=== PATIENT | male | born 1945 | race Caucasian/White ===

== ENCOUNTER 2019-12-18 20:08 | Observation (INO) ==
[2019-12-18 20:36] LABS: Basophils % 0.3 % (0.0-0.8); Eosinophils # 0.2 10*3/uL (0.0-0.87); Eosinophils % 1.5 % (0.00-10.9); Hematocrit 43.4 VOL% (42.0-52.0); Hemoglobin 14.4 GM/DL (14.0-18.0); Immature Granulocytes % 0.5 %; Immature Granulocytes Absolute 0.06 #; Lymphocytes # 2.4 10*3/uL (1.4-4.0); Lymphocytes % 19.2 % (21.2-54.2); Mean Corpuscular HGB Conc 33.2 GM/DL (32-36); Mean Corpuscular Volume 95.2 FL (87-102); Mean Platelet Volume 11.3 FL (9.6-12.0); Monocytes % 8.9 % (1.7-12.7); Neutrophils % 69.6 % (38.7-73.9); Platelet Count 251 T/CUMM (130-400); Red Blood Count 4.56 MC/CUMM (3.8-5.5); White Blood Count 12.7 T/CUMM (4-12)
[2019-12-18 20:54] LABS: Alanine Aminotransferase 35 U/L (16-61); Albumin 3.3 G/DL (3.4-5.0); Alkaline Phosphatase 84 U/L (45-117); Aspartate Amino Transferase 16 U/L (0-37); Bilirubin,Total < 0.39 MG/DL (0.2-1.0); Blood Urea Nitrogen 34 MG/DL (7-18); Calcium 8.2 MG/DL (8.5-10.1); Estimated Glom Filtration Rate 43 ML/MIN; Glucose 169 MG/DL (74-106); Osmolality,Calculated 288.5 MOS/KG (273-304); Total Protein 6.8 G/DL (6.4-8.3)
[2019-12-18] MEDS ORDERED: PANTOPRAZOLE 40 MG VIAL IV STA (23:07)
[2019-12-18] MEDS ORDERED: SODIUM CHLORIDE 0.9% 500 ML IV STA (23:07)
[2019-12-18] MEDS ORDERED: ONDANSETRON 4 MG/2 ML VIAL IV STA (23:07)
[2019-12-18 23:50] LABS: PT Patient Result 10.4 SECS (9.8-11.9)
[2019-12-19] MEDS ORDERED: ONDANSETRON 4 MG/2 ML VIAL IV PRN (00:07)
[2019-12-19] MEDS ORDERED: ACETAMINOPHEN 325 MG TABLET PO PRN (00:07)
[2019-12-19] MEDS ORDERED: DEXTROSE 50% 25 GM/50 ML VIAL IV PRN ×3 (00:07→15:34)
[2019-12-19] MEDS ORDERED: GLUCAGON 1 MG VIAL IM PRN ×2 (00:07→15:34)
[2019-12-19 06:59] LABS: Hematocrit 36.2 VOL% (42.0-52.0); Hemoglobin 11.9 GM/DL (14.0-18.0)
[2019-12-19 07:34] LABS: Albumin 2.8 G/DL (3.4-5.0); Bilirubin,Total 0.5 MG/DL (0.2-1.0); Calcium 7.9 MG/DL (8.5-10.1); Osmolality,Calculated 289.4 MOS/KG (273-304); Total Protein 5.8 G/DL (6.4-8.3)
[2019-12-19] MEDS ORDERED: INSULIN REGULAR 100 UNIT/ML ONE (08:33)
[2019-12-19] MEDS: SODIUM CHLORIDE 0.9% 1,000 ML IV SCH (08:38)
[2019-12-19] MEDS: INSULIN REGULAR 100 UNIT/ML SUBCUT SCH ×4 (08:40→20:59)
[2019-12-19] MEDS: PANTOPRAZOLE 40 MG TABLET PO SCH ×2 (10:14→20:57)
[2019-12-19 13:09] LABS: Hematocrit 33.8 VOL% (42.0-52.0)
[2019-12-19 19:18] LABS: Hematocrit 30.5 VOL% (42.0-52.0)
[2019-12-19] MEDS ORDERED: SIMVASTATIN 40 MG TABLET PO SCH (21:00)
[2019-12-20 01:58] LABS: Hematocrit 30.2 VOL% (42.0-52.0); Hemoglobin 9.9 GM/DL (14.0-18.0)
[2019-12-20] MEDS: SODIUM CHLORIDE 0.9% 1,000 ML IV SCH ×2 (04:35→12:34)
[2019-12-20 05:31] LABS: Basophils % 0.4 % (0.0-0.8); Eosinophils # 0.2 10*3/uL (0.0-0.87); Eosinophils % 2.7 % (0.00-10.9); Hematocrit 28.8 VOL% (42.0-52.0); Hemoglobin 9.5 GM/DL (14.0-18.0); Immature Granulocytes % 0.7 %; Immature Granulocytes Absolute 0.05 #; Lymphocytes # 2.1 10*3/uL (1.4-4.0); Lymphocytes % 30.8 % (21.2-54.2); Mean Corpuscular Volume 97.6 FL (87-102); Mean Platelet Volume 11.5 FL (9.6-12.0); Monocytes % 9.4 % (1.7-12.7); Platelet Count 142 T/CUMM (130-400); Red Blood Count 2.95 MC/CUMM (3.8-5.5); Red Cell Distribution Width 12.7 % (9.3-17.3); White Blood Count 6.7 T/CUMM (4-12)
[2019-12-20 06:04] LABS: Calcium 7.8 MG/DL (8.5-10.1); Osmolality,Calculated 287.4 MOS/KG (273-304)
[2019-12-20] MEDS: INSULIN REGULAR 100 UNIT/ML SUBCUT SCH ×2 (08:07→11:52)
[2019-12-20] MEDS: PANTOPRAZOLE 40 MG TABLET PO SCH (08:08)
[2019-12-20] MEDS ORDERED: LOSARTAN 25 MG TABLET PO SCH (09:00)
[2019-12-20 11:40] VITALS: BP 129/64
== END 2019-12-20 13:07 | disposition home or self-care (01) ==
LOC: N.ED 20:08 → N.EDINP 20:08 → N.5E 12-19 09:44
PROVIDERS: ADMIT Internal Medicine; ATTEND Internal Medicine